=== PATIENT | female | born 1955 | race African-American/Black ===

== ENCOUNTER 2024-03-04 15:26 | Inpatient (IN) | payer OTHER ==
[2024-03-04 16:12] VITALS: BMI 23.8
[2024-03-04] MEDS ORDERED: IBUPROFEN 400 MG TABLET (FP) PO PRN (16:34)
[2024-03-04] MEDS ORDERED: NALOXONE HCL 0.4 MG/ML VIAL IM PRN (16:34)
[2024-03-04] MEDS ORDERED: P-EPHED 60MG/TRIPROLIDI 2.5MG TABLET PO PRN (16:34)
[2024-03-04] MEDS ORDERED: MAG HYDROX/AL HYDROX/SIMETH 30 ML UNIT-DOSE CUP PO PRN (16:34)
[2024-03-04] MEDS ORDERED: BENZONATATE 200 MG CAPSULE PO PRN (16:34)
[2024-03-04] MEDS ORDERED: NICOTINE POLACRILEX 2 MG LOZENGE BC PRN (16:34)
[2024-03-04] MEDS ORDERED: LOPERAMIDE HCL 2 MG CAPSULE PO PRN (16:34)
[2024-03-04] MEDS ORDERED: MAGNESIUM HYDROX 2400MG/30ML ORAL SUSPENSION 30 ML CUP PO PRN (16:34)
[2024-03-04] MEDS ORDERED: BENZOCAINE/MENTHOL (CHLORASEPTIC ) LOZENGE MM PRN (16:34)
[2024-03-04] MEDS ORDERED: POLYETHYLENE GLYCOL (HEALTHYLAX) 3350 17 GM PACKET PO PRN (16:34)
[2024-03-04] MEDS ORDERED: BISMUTH SUBSALICYLATE 524 MG/30 ML PO PRN (16:34)
[2024-03-04] MEDS ORDERED: NICOTINE POLACRILEX 2 MG GUM BUC PRN (16:34)
[2024-03-04] MEDS ORDERED: ONDANSETRON *ODT* 4 MG TABLET SL PRN (16:34)
[2024-03-04] MEDS ORDERED: NALOXONE (NARCAN) HCL 4 MG/0.1 ML SPRAY NS PRN (16:34)
[2024-03-04] MEDS ORDERED: guaiFENesin 600 MG TABLET.ER (FP) PO PRN (16:34)
[2024-03-04] MEDS: IBUPROFEN 600 MG TABLET (FP) PO PRN (17:20)
[2024-03-04] MEDS ORDERED: IBUPROFEN 600 MG TABLET (FP) PO ONE (17:27)
[2024-03-04] MEDS: METOPROLOL TARTRATE 25 MG TABLET (FP) PO ONE (18:06)
[2024-03-04] MEDS: MELATONIN 5 MG TABLETS PO SCH (22:39)
[2024-03-04] MEDS: THIAMINE 100 MG TABLET PO SCH (22:39)
[2024-03-05] MEDS: cloNIDine HCL 0.1 MG TABLET PO ONE (07:12)
[2024-03-05] MEDS: methaDONE HCL 10 MG TABLET (FOR DETOX USE ONLY) PO ONE (10:10)
[2024-03-05] MEDS: diazePAM 5 MG TABLET PO SCH (10:11)
[2024-03-05] MEDS: PRENATAL VITAMINS W/ FOLIC ACID TABLET (FP) PO SCH (10:11)
[2024-03-05] MEDS: diazePAM 5 MG TABLET PO PRN (15:43)
[2024-03-05] MEDS: ACETAMINOPHEN 325 MG TABLET (FP) PO PRN (17:17)
[2024-03-06] MEDS: BACLOFEN 10 MG TABLET (FP) PO ONE (10:09)
[2024-03-06] MEDS: BACLOFEN 10 MG TABLET (FP) PO SCH (13:29)
[2024-03-06 13:46] LABS: BASO % 0.9 % (0-2.0); EOS % 1.3 % (0-4.5); HEMATOCRIT 44.4 % (32.4-45.2); HEMOGLOBIN 14.7 GM/dL (10.7-15.3); LYMPH % 29.1 % (8-40); MCH 31.9 pg (25.7-33.7); MCHC 33.1 g/dl (32.0-36.0); MEAN CELL VOLUME 96.4 fl (80-96); MEAN PLT VOLUME 8.7 fl (7.5-11.1); NEUT % 58.7 % (42.8-82.8); PLATELET COUNT 358 10^3/uL (134-434); RBC 4.61 M/mm3 (3.60-5.2); RDW 13.8 % (11.6-15.6); WHITE BLOOD COUNT 9.6 K/mm3 (4.0-10.0)
[2024-03-07] MEDS: diazePAM 5 MG TABLET PO SCH (05:43)
[2024-03-07] MEDS: methaDONE HCL 10 MG TABLET (FOR DETOX USE ONLY) PO ONE (09:22)
[2024-03-07] MEDS: cloNIDine HCL 0.1 MG TABLET PO PRN (10:19)
[2024-03-07] MEDS: LIDOCAINE 5% TOPICAL PATCH TP SCH (10:20)
[2024-03-07] MEDS: hydrOXYzine PAMOATE 25 MG CAPSULE (FP) PO PRN (10:53)
[2024-03-07] MEDS: LIDOCAINE PATCH REMOVAL MC SCH (22:15)
[2024-03-08] MEDS: diazePAM 5 MG TABLET PO SCH (05:42)
[2024-03-08] MEDS ORDERED: NICOTINE POLACRILEX 2 MG GUM BUC PRN (14:32)
[2024-03-08] MEDS ORDERED: NICOTINE 14 MG/24 HOURS TOPICAL PATCH TD SCH (14:45)
[2024-03-08] MEDS: NICOTINE 14 MG/24 HOURS TOPICAL PATCH TD SCH (15:25)
[2024-03-09] MEDS: diazePAM 5 MG TABLET PO ONE (05:23)
[2024-03-09] MEDS: methaDONE HCL 10 MG TABLET (FOR DETOX USE ONLY) PO ONE (10:24)
[2024-03-09] MEDS: NALOXONE (NYS OPIOID OVERDOSE PROGRAM) 4 MG/0.1 ML SPRAY NS ONE (13:00)
[2024-03-09] MEDS: amLODIPine BESYLATE 5 MG TABLET (FP) PO SCH (13:44)
[2024-03-10 08:58] VITALS: BP 156/94; PULSE 104; RESP 18; TEMP 97.4
[2024-03-10] MEDS: NALOXONE (NYS OPIOID OVERDOSE PROGRAM) 4 MG/0.1 ML SPRAY NS PRN (09:56)
== END 2024-03-10 09:54 | disposition home or self-care (01) | DRG 773 ==
LOC: YASAS 15:26 → Y3N 17:03
PROVIDERS: ADMIT Allergy & Immunology; ATTEND Surgery
PROC: HZ2ZZZZ Detoxification Services for Substance Abuse Treatment (ICD-10-PCS; principal; 2024-03-04)
DX: F11.23 Opioid dependence with withdrawal (principal); F10.230 Alcohol dependence with withdrawal, uncomplicated; F14.20 Cocaine dependence, uncomplicated; F12.20 Cannabis dependence, uncomplicated; F17.210 Nicotine dependence, cigarettes, uncomplicated; I10 Essential (primary) hypertension; M54.50 Low back pain, unspecified; G89.29 Other chronic pain; Z99.89 Dependence on other enabling machines and devices; Z59.02 Unsheltered homelessness
CPT/HCPCS: 36415; 71045-TC-FY; 72100-TC-FY; 80305; 80307; 85025; 86780; 86803; 87522; 93005; 93010; J0475